=== PATIENT | female | born 1965 | race Caucasian/White ===

== ENCOUNTER 2024-08-14 15:24 | Emergency (ER) | payer OTHER ==
[2024-08-14] MEDS ORDERED: Boostrix 0.5 ML (Tdap) VIAL (>/=7 yrs of age) ONE (15:36)
[2024-08-14] MEDS ORDERED: Lidocaine 1% PF 5 ML VIAL ONE (15:36)
== END 2024-08-14 16:44 | disposition home or self-care (01) ==
LOC: MADERS 15:24
DX: S61.210A Laceration without foreign body of right index finger without damage to nail, initial encounter (principal); J44.9 Chronic obstructive pulmonary disease, unspecified; Z23 Encounter for immunization; W45.8XXA Other foreign body or object entering through skin, initial encounter; Y93.89 Activity, other specified
CPT/HCPCS: 12001; 90471; 90715